=== PATIENT | male | born 1990 | race Caucasian/White ===

== ENCOUNTER 2017-01-28 12:01 | Emergency (ER) | payer BC, OTHER ==
[~2017-01-28] VITALS: Ht 170.2 cm; Wt 81.6 kg
[~2017-01-28 12:01] MED LIST: [UNRECOGNIZED DRUG - REMARK]; motrin; tylenol
--- NOTE | 2017-01-28 12:04 | NUR ---
Arrived via [facility] with compliant of palpitations which send a jolt down his entire body. Patient also reports that he was drinkng very heavily last night and combined this with adderal. States that he may feel poorly S/T drinking. Addendum: 01/28/17 at 1210 by [email or web address] Placed in room 4 . Placed on telemetry monitor, blood pressure machine and pulse oximeter. To gown for exam. Side rails up. Report given to Daniel BARROSO.
--- NOTE | 2017-01-28 12:04 | NUR ---
Pt report received from DHARMESH Smith. Pt states he drank heavily last night along with taking his remeron and adderall. Pt presents with c/o palpitations. Denies C/P.
[2017-01-28 12:11] VITALS: BP_SYST 134
--- NOTE | 2017-01-28 12:20 | NUR ---
PATIENT TO ER BED 4.MOTHER AT BEDSIDE.PER PATIENT HE HAD PALPITATIONS AFTER HEAVY DRINKING.NO COMPLAIN OF CHEST PAIN.NO OTHER COMPLAIN/INJURIES PER PATIENT OR NOTED
[2017-01-28 12:51] LABS: BASOPHILS # (AUTO) 0.1 K/uL (0.0-0.2); EOSINOPHILS % (AUTO) 0.7 % (0.0-4.0); LYMPHOCYTES # (AUTO) 1.7 K/uL (1.0-5.5)
[2017-01-28 12:57] LABS: CALCIUM 8.8 mg/dL (8.4-11.0); CREATININE 1.11 mg/dL (0.55-1.30); POTASSIUM 4.3 mmol/L (3.5-5.1)
[2017-01-28 13:01] LABS: INR 1.1 (0.80-1.20); PROTHROMBIN TIME 11.7 SECS (9.5-12.5)
[2017-01-28 13:02] LABS: ALBUMIN 4.4 g/dL (3.4-4.8); TOTAL PROTEIN, SERUM 7.9 g/dL (6.4-8.3)
[2017-01-28 13:09] LABS: HEMATOCRIT 51.5 % (36-54); HEMOGLOBIN 16.8 g/dL (14.0-18.0); LYMPHOCYTES % (AUTO) 29.7 % (20.5-51.5); MEAN CORPUSCULAR HEMOGLOBIN 31 pg (27-31); MEAN CORPUSCULAR HGB CONC 33 % (32-36); MEAN CORPUSCULAR VOLUME 96 fL (79.0-98.0); MONOCYTES # (AUTO) 0.3 K/uL (0.0-1.0); MONOCYTES % (AUTO) 5.9 % (1.7-9.3); NEUTROPHILS # (AUTO) 3.8 K/uL (1.8-7.7); NEUTROPHILS % (AUTO) 62.7 % (40.0-70.0); PLATELET COUNT (AUTO) 197 K/uL (130-430); RED BLOOD CELL COUNT(AUTO) 5.38 MIL/uL (4.2-6.2); RED CELL DISTRIBUTION WIDTH 12.8 % (9.0-15.0); WHITE BLOOD COUNT (AUTO) 5.9 K/uL (4.8-10.8)
--- NOTE | 2017-01-28 13:26 | NUR ---
Patient given written and verbal discharge instructions and verbalizes understanding. ER MD discussed with patient the results and treatment provided. Patient in stable condition. ID arm band removed. IV catheter removed intact and dressing applied, no active bleeding. Patient educated on pain management and to follow up with PMD. Pain Scale 0/10 . Opportunity for questions provided and answered.
[2017-01-28] MEDS: NS 500 ML IV ONE ×2 (14:06→14:08)
[2017-01-28 14:27] VITALS: BP_SYST 130
== END 2017-01-28 14:27 | disposition home or self-care (01) ==
LOC: SED 12:01
DX: R00.2 Palpitations (principal); R03.0 Elevated blood-pressure reading, without diagnosis of hypertension; F90.9 Attention-deficit hyperactivity disorder, unspecified type; Z88.1 Allergy status to other antibiotic agents
CPT/HCPCS: 36415; 71010; 80053; 84484; 85025; 85379; 85610; 85730; 93005; 96360; 99285; J7040